=== PATIENT | female | born 1960 ===

== ENCOUNTER 2024-08-10 13:11 | Emergency (ER) | payer BC ==
[~2024-08-10] VITALS: Ht 170.2 cm; Wt 90.7 kg
[2024-08-10] MEDS ORDERED: NS 1,000 ML IV SCH (13:55)
[2024-08-10 14:08] LABS: BASOPHILS ABSOLUTE AUTO 0.03 K/mm3 (0.00-0.23); BASOPHILS PERCENT AUTO 0 % (0-2); EOSINOPHILS ABSOLUTE AUTO 0.04 K/mm3 (0.00-0.68); EOSINOPHILS PERCENT AUTO 1 % (0-6); Hematocrit 36.7 % (33.0-51.0); Hemoglobin 12.9 g/dL (11.5-16.0); IMMATURE GRAN ABSOLUTE AUTO 0.02 K/mm3 (0.00-0.10); IMMATURE GRAN PERCENT AUTO 0 % (0-1); LYMPHOCYTES ABSOLUTE AUTO 1.24 K/mm3 (0.84-5.20); LYMPHOCYTES PERCENT AUTO 16 % (21-46); MONOCYTES ABSOLUTE AUTO 0.86 K/mm3 (0.16-1.47); MONOCYTES PERCENT AUTO 11 % (4-13); Mean Corpuscular HGB 31.7 pg (26.0-34.0); Mean Corpuscular HGB Conc 35.1 g/dL (31.5-36.5); Mean Corpuscular Volume 90 fL (80-100); Mean Platelet Volume 11.4 fL (9.1-12.4); NEUTROPHILS ABSOLUTE AUTO 5.67 K/mm3 (1.96-9.15); NEUTROPHILS PERCENT AUTO 72 % (41-73); Platelet Count 167 K/mm3 (150-400); RDW Coefficient Variation 13.6 % (11.7-14.2); RDW Standard Deviation 45.3 fL (35.1-46.3); Red Blood Cell Count 4.07 M/mm3 (3.80-5.20); White Blood Cell Count 7.86 K/mm3 (4.00-11.30)
[2024-08-10] MEDS ORDERED: LISI20 PO (14:26)
[2024-08-10] MEDS ORDERED: CARVEDILOL25 M9 PO (14:26)
[2024-08-10] MEDS ORDERED: CEFDINIR300 M4 PO (14:26)
[2024-08-10] MEDS ORDERED: AZIT250 PO (14:26)
[2024-08-10] MEDS ORDERED: OMEP20ER PO (14:26)
[2024-08-10] MEDS ORDERED: HYDCHL25 PO (14:26)
[2024-08-10] MEDS ORDERED: ROSUVASTATIN CA40 MG PO (14:26)
[2024-08-10] MEDS ORDERED: Crestor40 MG PO (14:27)
[2024-08-10 14:33] LABS: Albumin, Blood 3.5 g/dL (3.4-5.0); Albumin/Globulin Ratio 0.8 (0.8-1.8); Bilirubin, Total 0.8 mg/dL (0.1-1.0); Bun/Creatinine Ratio 16.7 (12.0-20.0); Creatinine, Blood 1.68 mg/dL (0.40-1.00); Globulin, Blood 4.4 g/dL (2.2-4.0); Potassium, Blood 3.8 mmol/L (3.5-5.5); Total Protein, Blood 7.9 g/dL (6.4-8.2)
[2024-08-10] MEDS ORDERED: Lactated Ringer's 1,000 ML IV SCH (15:25)
[2024-08-10 16:06] LABS: Source, Urine Clean Catch
[2024-08-10 16:11] LABS: Appearance, Urine Clear (Clear); Bilirubin, Urine Neg (Neg); Blood, Urine Neg (Neg); Color, Urine Yellow (P-Yellow); Glucose Qualitative, Urine Neg (Neg); Ketones, Urine Neg (Neg); Leukocyte Esterase, Urine 1+ (Neg); Nitrite, Urine Neg (Neg); Protein, Urine 1+ (Neg); Urobilinogen, Urine NORM (Normal)
[2024-08-10 16:19] LABS: Hyaline Casts 0-2 /lpf (0-2)
[2024-08-10 16:20] LABS: Bacteria Rare /hpf; Red Blood Cells, Urine Not Seen /hpf (0-2); Squamous Epithelial Cells Rare /hpf (Few); White Blood Cells, Urine 0-2 /hpf (0-5)
[2024-08-10] MEDS ORDERED: Loperamide HCl 2 MG Cap PO ONE (16:55)
== END 2024-08-10 17:35 | disposition home or self-care (01) ==
LOC: ER 13:11
PROVIDERS: Student in an Organized Health Care Education/Training Program
DX: R19.7 Diarrhea, unspecified (principal); E86.0 Dehydration; I95.9 Hypotension, unspecified; I70.0 Atherosclerosis of aorta; I25.2 Old myocardial infarction; Z95.1 Presence of aortocoronary bypass graft; I25.10 Atherosclerotic heart disease of native coronary artery without angina pectoris; I10 Essential (primary) hypertension; K21.9 Gastro-esophageal reflux disease without esophagitis; E78.5 Hyperlipidemia, unspecified; Z79.899 Other long term (current) drug therapy; Z87.891 Personal history of nicotine dependence
CPT/HCPCS: 36415; 71045; 74177; 80053; 81001; 83605; 83880; 84145; 84484; 85025; 87040; 87086; 93005; 93010; 96360-59; 99285-25; A9270; J7030; Q9967